=== PATIENT | male | born 1995 | race Caucasian/White ===

== ENCOUNTER 2021-09-17 11:07 | Emergency (ER) | payer SELFPAY ==
[~2021-09-17] VITALS: Ht 170.2 cm; Wt 68.0 kg
[2021-09-17] MEDS ORDERED: CEFTRIAXONE SODIUM 1 G/VIAL IM STA (11:46)
[2021-09-17] MEDS ORDERED: LIDOCAINE HCL 1% 20ML VIAL (Pyxis) INJ INFIL STA (11:46)
[2021-09-17] MEDS ORDERED: KETOROLAC 60MG/2ML VIAL IM STA (12:08)
[2021-09-17] MEDS ORDERED: HYDROCODONE/ACETAMINOPHEN 5/325MG TABLET PO STA (12:08)
[2021-09-17] MEDS ORDERED: HYDR-4001 PO (13:50)
[2021-09-17] MEDS ORDERED: SULF1TAB48 PO (13:50)
[2021-09-17] MEDS ORDERED: AMOX1TAB16 PO (13:50)
[2021-09-17 14:03] VITALS: BP 127/87
== END 2021-09-17 14:09 | disposition home or self-care (01) ==
LOC: ER 11:15
DX: S02.69XA Fracture of mandible of other specified site, initial encounter for closed fracture (principal); W34.09XA Accidental discharge from other specified firearms, initial encounter; Y93.89 Activity, other specified; Y92.89 Other specified places as the place of occurrence of the external cause; Y99.8 Other external cause status; M27.2 Inflammatory conditions of jaws
CPT/HCPCS: 96372; 99284; J0696; J1885; J3490